=== PATIENT | female | born 1980 | race Caucasian/White ===

== ENCOUNTER 2017-10-24 19:28 | Emergency (ER) | payer SELFPAY ==
[2017-10-24] VITALS (8 sets, daily range): BP systolic 98–114; BP diastolic 50–76
[~2017-10-24] VITALS: Ht 165.1 cm; Wt 62.1 kg
--- NOTE | 2017-10-24 19:39 | Emergency Room Report ---
History of Present Illness General Chief Complaint: Altered Level of Consciousness Source: Patient, EMS (Noble Allan MD) Present Illness HPI Patient is a 37-year-old female brought in by EMS after increased altered mental status. Patient was noted to have increased agitation and had been given Versed 5 mg by EMS. The patient was noted to have marked agitation. She was uncooperative with history.The patient reportedly found in house. The patient was brought in with [employer] in handcuffs. (Noble Allan MD) Allergies: Coded Allergies: No Known Allergies (Unverified , 10/24/17) Patient History Past Medical History: see triage record Past Surgical History: unable to obtain Family History: unable to obtain Last Menstrual Period: unk Reviewed Nursing Documentation: PMH: Agreed; PSxH: Agreed (Noble Allan MD) Review of Systems All Other Systems: negative except mentioned in HPI (Noble Allan MD) Physical Exam Vital Signs Date Time Temp Pulse Resp B/P (MAP) Pulse Ox O2 Delivery O2 Flow Rate FiO2 10/24/17 19:21 97.9 119 22 106/76 100 Room Air 97.9 Sp02 EP Interpretation: reviewed, normal General Appearance: alert/responsive, no apparent distress, non-toxic Head: atraumatic Eyes: PERRL, lids + conjunctiva normal ENT: hearing intact, no angioedema Neck: supple/symm/no masses, no meningismus Respiratory: effort normal, no wheezing, chest symmetrical Cardiovascular: regular rate, rhythm, no edema Cardiovascular #2: 2+ carotid (R), 2+ carotid (L), 2+ dorsalis pedis (R), 2+ dorsalis pedis (L) Gastrointestinal: non-tender, no mass, non-distended, no rebound/guarding, normal bowel sounds Musculoskeletal: gait & station normal, strength & tone normal, normal ROM, non -tender Neurologic: normal inspection, CN II-XII intact, oriented x3, sensory intact, normal speech Psychiatric: other - agitated Skin: no rash Lymphatic: normal inspection (Noble Allan MD) Medical Decision Making Diagnostic Impression: Primary Impression: Altered mental status Qualified Codes: R41.82 - Altered mental status, unspecified Additional Impression: Substance abuse ER Course Patient presented for agitation. Differential diagnoses include substance abuse , psychosis, bipolar disorder, depression, malingering. The patient appears to be intoxicated with a stimulant. The patient was given IV fluids as well as IV medication for sedation. Patient was endorsed to Dr. Grissom pending reevaluation after sedative medications. Labs Test 10/24/17 20:00 White Blood Count 8.0 K/UL (4.8-10.8) Red Blood Count 3.45 M/UL (4.20-5.40) Hemoglobin 11.0 G/DL (12.0-16.0) Hematocrit 32.5 % (37.0-47.0) Mean Corpuscular Volume 94 FL (80-99) Mean Corpuscular Hemoglobin 31.7 PG (27.0-31.0) Mean Corpuscular Hemoglobin Concent 33.7 G/DL (32.0-36.0) Red Cell Distribution Width 12.7 % (11.6-14.8) Platelet Count 268 K/UL (150-450) Mean Platelet Volume 7.1 FL (6.5-10.1) Neutrophils (%) (Auto) 63.5 % (45.0-75.0) Lymphocytes (%) (Auto) 24.7 % (20.0-45.0) Monocytes (%) (Auto) 9.4 % (1.0-10.0) Eosinophils (%) (Auto) 0.9 % (0.0-3.0) Basophils (%) (Auto) 1.4 % (0.0-2.0) Sodium Level 144 MMOL/L (136-145) Potassium Level 3.0 MMOL/L (3.5-5.1) Chloride Level 106 MMOL/L (98-107) Carbon Dioxide Level 29 MMOL/L (21-32) Anion Gap 9 mmol/L (5-15) Blood Urea Nitrogen 9 mg/dL (7-18) Creatinine 0.8 MG/DL (0.55-1.30) Estimat Glomerular Filtration Rate > 60 mL/min (>60) Glucose Level 93 MG/DL (74-106) Calcium Level 8.9 MG/DL (8.5-10.1) Total Bilirubin 0.3 MG/DL (0.2-1.0) Aspartate Amino Transf (AST/SGOT) 19 U/L (15-37) Alanine Aminotransferase (ALT/SGPT) 31 U/L (12-78) Alkaline Phosphatase 67 U/L (46-116) Total Creatine Kinase 130 U/L (26-308) Total Protein 6.8 G/DL (6.4-8.2) Albumin 3.1 G/DL (3.4-5.0) Globulin 3.7 g/dL Albumin/Globulin Ratio 0.8 (1.0-2.7) Salicylates Level 2.2 ug/mL (2.8-20) Acetaminophen Level < 2 MCG/ML (10-30) Serum Alcohol < 3 mg/dL (Noble Allan MD) ER Course This patient was signed out to me. She was found is a squatter in someone's home. She came in as a [employer] and was agitated. Requiring sedation. He slept through the night. She is awake now. She conversant. Walking without any problem. Refuse to give her name. I see no criteria for 5150. We'll discharge home. Critical care is mandated in this patient who presented with (). Patient require my urgent intervention to attenuate the risks of () which may lead to cardiovascular collapse and . Critical care time is 35 minutes excluding any reportable procedure. Critical care time included evaluation, multiple reevaluation, looking at old charts, interpreting laboratory and diagnostic data , discussing case with patient and family and consultants, and charting. (ROMEO GRISSOM M.D.) Last Vital Signs Date Time Temp Pulse Resp B/P (MAP) Pulse Ox O2 Delivery O2 Flow Rate FiO2 10/24/17 19:21 97.9 119 22 106/76 100 Room Air 97.9 Status: improved (Noble Allan MD) Status: improved (ROMEO GRISSOM M.D.) Disposition: HOME, SELF-CARE Condition: Stable Additional Instructions: Stop using drugs. Follow-up with your in rehabilitation in 7 days. Return if worse. Noble Allan MD Oct 24, 2017 19:39 ROMEO GRISSOM M.D. Oct 24, 2017 23:06
[2017-10-24] MEDS ORDERED: DiphenhydrAMINE 50mg/ml Inj IM ONE (19:45)
[2017-10-24] MEDS ORDERED: Haloperidol 5mg/ml Inj IM ONE (19:45)
[2017-10-24 22:13] LABS: BASOPHILS % (AUTO) 1.4 % (0.0-2.0); EOSINOPHILS % (AUTO) 0.9 % (0.0-3.0); HEMATOCRIT 32.5 % (37.0-47.0); LYMPHOCYTES % (AUTO) 24.7 % (20.0-45.0); MEAN CORPUSCULAR VOLUME 94 FL (80-99); MONOCYTES % (AUTO) 9.4 % (1.0-10.0); NEUTROPHILS % (AUTO) 63.5 % (45.0-75.0); PLATELET COUNT 268 K/UL (150-450); RED BLOOD COUNT 3.45 M/UL (4.20-5.40); RED CELL DISTRIBUTION WIDTH 12.7 % (11.6-14.8)
[2017-10-24 22:27] LABS: ANION GAP 9 mmol/L (5-15); BLOOD UREA NITROGEN 9 mg/dL (7-18); CALCIUM 8.9 MG/DL (8.5-10.1); CARBON DIOXIDE 29 MMOL/L (21-32); CHLORIDE 106 MMOL/L (98-107); CREATININE 0.8 MG/DL (0.55-1.30); SODIUM 144 MMOL/L (136-145)
[2017-10-24 22:31] LABS: ALANINE AMINOTRANSFERASE 31 U/L (12-78); ALBUMIN 3.1 G/DL (3.4-5.0); ALBUMIN/GLOBULIN RATIO 0.8 (1.0-2.7); ALKALINE PHOSPHATASE 67 U/L (46-116); ASPARTATE AMINO TRANSFERASE 19 U/L (15-37); BILIRUBIN,TOTAL 0.3 MG/DL (0.2-1.0); CREATINE KINASE 130 U/L (26-308)
== END 2017-10-24 23:50 | disposition home or self-care (01) ==
LOC: EDBD 19:28 → EMR 19:56
DX: R41.82 Altered mental status, unspecified (principal); F19.10 Other psychoactive substance abuse, uncomplicated
CPT/HCPCS: 36415; 80053; 82550; 85025; 96360; 96372; 99284; G0480; J1200; J1630; 80329